=== PATIENT | male | born 1970 | race Caucasian/White ===

== ENCOUNTER 2023-10-05 08:43 | Inpatient (IN) | payer MEDICAID ==
[~2023-10-05] VITALS: Ht 185.4 cm; Wt 113.4 kg
[~2023-10-05 08:43] MED LIST: GABA-1181 PO; MELA5TAB40 PO; MIRT-89 PO; NALT50TA PO; OLAN5TAB94 PO; OMEG-135 PO
[2023-10-05 09:24] LABS: BASOPHILS % (AUTO) 0.7 % (0.0-2.0); EOSINOPHILS % (AUTO) 1.8 % (1.0-6.0); HEMATOCRIT 43.4 % (41-53); LYMPHOCYTES # (AUTO) 1.5 K/uL (1.0-4.8); LYMPHOCYTES % (AUTO) 20.8 % (22.0-44.0); MEAN CORPUSCULAR HEMOGLOBIN 33.8 pg (26.0-34.0); MEAN CORPUSCULAR HGB CONC 34.5 G/dL (31.0-37.0); MEAN CORPUSCULAR VOLUME 98 fL (80-100); MONOCYTES # (AUTO) 0.7 K/uL (0.1-1.0); MONOCYTES % (AUTO) 8.9 % (2.0-9.0); NEUTROPHILS % (AUTO) 67.8 % (40.0-70.0); PLATELET COUNT (AUTO) 199 K/uL (150-450); RED BLOOD CELL COUNT(AUTO) 4.44 MIL/uL (4.50-5.90); WHITE BLOOD COUNT (AUTO) 7.4 K/uL (4.5-11.0)
[2023-10-05] MEDS ORDERED: ALBUTEROL SULFATE HFA 90 MCG/PUFF 8 GM INHALER IH PRN (09:30)
[2023-10-05 09:34] LABS: ANION GAP 6 mmol/L (8-16); CALCIUM, TOTAL 9.4 mg/dL (8.8-10.5); CARBON DIOXIDE 29 mmol/L (22-29); CHLORIDE 102 mmol/L (98-107); CREATININE 1.13 mg/dL (0.60-1.30); GLOMERULAR FILTR. RATE CALC > 60 mL/min (>60); GLUCOSE,RANDOM 93 mg/dL (70-110); SODIUM SERUM 137 mmol/L (136-145); UREA NITROGEN, BLOOD 29 mg/dL (7-18)
[2023-10-05 09:34] LABS: COVID AG,FIA SOURCE NASAL SWAB
[2023-10-05 09:39] LABS: ALANINE AMINOTRANSFERASE 45 U/L (12-78); ALBUMIN 3.8 g/dL (3.4-5.0); ALKALINE PHOSPHATASE 84 U/L (46-116); ASPARTATE AMINOTRANSFERASE 29 U/L (15-37); BILIRUBIN,TOTAL 0.7 mg/dL (0.1-1.0); TOTAL PROTEIN, SERUM 7.5 g/dL (6.4-8.2)
[2023-10-05 09:40] LABS: ALCOHOL, BLOOD (SERUM) < 3 mg/dL (0-10)
[2023-10-05 09:41] VITALS: PULSE 104; RESP 20; O2SAT 91
[2023-10-05 10:01] LABS: SARS-COV2 (COVID) ANTIGEN,FIA Negative (Negative)
[2023-10-05 10:16] LABS: PH,URINE DRUG SCREEN 5.5 (5.0-8.0)
[2023-10-05 10:23] LABS: ALCOHOL, URINE DRUG SCREEN POSITIVE (NEGATIVE); AMPHET/METH SCREEN,URINE POSITIVE (NEGATIVE); BARBITURATE SCREEN, URINE NEGATIVE (NEGATIVE); BENZODIAZEPINES SCREEN,URINE POSITIVE (NEGATIVE); CANNABINOID SCREEN,URINE NEGATIVE (NEGATIVE); COCAINE SCREEN,URINE NEGATIVE (NEGATIVE); METHADONE SCREEN, URINE NEGATIVE (NEGATIVE); OPIATE SCREEN,URINE NEGATIVE (NEGATIVE); PHENCYCLIDINE SCREEN,URINE NEGATIVE (NEGATIVE)
[2023-10-05] MEDS ORDERED: LORazepam 2 MG TABLET PO PRN ×2 (10:45→14:30)
[2023-10-05] MEDS ORDERED: ZOLPIDEM TARTRATE 10 MG TABLET PO PRN (10:45)
[2023-10-05] MEDS ORDERED: ALBU18HF12 IH (10:50)
[2023-10-05 10:56] LABS: APPEARANCE,URINE CLEAR (CLEAR); BILIRUBIN,URINE NEGATIVE (NEGATIVE); COLOR,URINE YELLOW (YELLOW); GLUCOSE, URINE (UA) NEGATIVE (NEGATIVE); KETONES,URINE TRACE mg/dL (NEGATIVE); LEUKOCYTE ESTERASE ,URINE NEGATIVE (NEGATIVE); NITRATE,URINE NEGATIVE (NEGATIVE); OCCULT BLOOD,URINE NEGATIVE (NEGATIVE); PH,URINE 5.5 (5.0-8.0); PROTEIN,URINE TRACE mg/dL (NEGATIVE); SPECIFIC GRAVITIY, URINE 1.029 (1.003-1.030); UROBILINOGEN,URINE <=1.0 mg/dL (<=1.0)
[2023-10-05] MEDS: OLANZapine 5 MG RAPDIS TABLET PO PRN (11:20)
[2023-10-05] MEDS ORDERED: ACETAMINOPHEN 325 MG TABLET PO PRN (14:30)
[2023-10-05] MEDS ORDERED: PROMETHAZINE HCL 25 MG TABLET PO PRN (14:30)
[2023-10-05] MEDS ORDERED: MAGNESIUM HYDROXIDE SUSPENSION 30 ML UDCUP PO PRN (14:30)
[2023-10-05] MEDS ORDERED: CYANOCOBALAMIN 1,000 MCG/ML VIAL IM ONE (14:30)
[2023-10-05] MEDS ORDERED: HydrOXYzine PAMOATE 50 MG CAPSULE PO PRN (14:30)
[2023-10-05] MEDS ORDERED: LOPERAMIDE HCL 2 MG CAPSULE PO PRN ×2 (14:30)
[2023-10-05] MEDS ORDERED: MAG HYDROX/ALUMINUM HYD/SIMETH ES 30 ML SUSPENSION UDCUP PO PRN (14:30)
[2023-10-05] MEDS ORDERED: TUBERCULIN, PURIFIED PROTEIN DERIVATIVE 5 TU/0.1 ML SYRINGE ID ONE (14:30)
[2023-10-05] MEDS ORDERED: GuaiFENesin/D-METHORPHAN [SUGAR-FREE] 200-20MG/10 ML SYRUP UDCUP PO PRN (14:30)
[2023-10-05 17:35] VITALS: BP 141/84; PULSE 86; RESP 17; TEMP 98; O2SAT 98
[2023-10-05] MEDS: THIAMINE 100 MG TABLET PO SCH (17:45)
[2023-10-05] MEDS: GABAPENTIN 300 MG CAPSULE PO SCH ×2 (17:45→20:44)
[2023-10-05 18:30] VITALS: BP 156/78; PULSE 71; RESP 19; TEMP 97.6; O2SAT 97
[2023-10-05] MEDS ORDERED: PNEUMOCOCCAL VACCINE POLYVALENT 0.5 ML SYRINGE [PPSV23] IM. ONE (19:00)
[2023-10-05] MEDS ORDERED: INFLUENZA VIRUS VACCINE QVS 2023-24 (6MO+)/PF 60 MCG/0.5 ML SYRINGE IM. ONE (19:00)
[2023-10-05 19:30] VITALS: BP 155/83; PULSE 78; RESP 19; TEMP 97.7; O2SAT 97
[2023-10-05 20:04] VITALS: RESP 20; TEMP 97.8
[2023-10-05] MEDS: MIRTAZAPINE 15 MG TABLET PO SCH (20:08)
[2023-10-05] MEDS: MELATONIN 5 MG TABLET PO SCH (20:08)
[2023-10-05 20:30] VITALS: BP 141/82; PULSE 75; RESP 18; TEMP 97.5; O2SAT 96
[2023-10-05] MEDS ORDERED: OLANZapine 5 MG RAPDIS TABLET PO SCH (21:00)
[2023-10-06] VITALS (8 sets, daily range): BP systolic 111–149; BP diastolic 59–91; PULSE 61–83; RESP 16–19; TEMP 97.6–98; O2SAT 95–97
[2023-10-06] MEDS ORDERED: LORazepam 2 MG TABLET PO PRN (07:00)
[2023-10-06 08:41] LABS: HEMOGLOBIN A1C 5.1 % (3.8-5.6)
[2023-10-06] MEDS: GABAPENTIN 300 MG CAPSULE PO SCH ×4 (08:42→20:11)
[2023-10-06] MEDS: THIAMINE 100 MG TABLET PO SCH ×2 (08:42→17:05)
[2023-10-06] MEDS: NALTREXONE HCL 50 MG TABLET PO SCH (08:43)
[2023-10-06] MEDS: LORazepam 2 MG TABLET PO SCH ×4 (08:43→20:14)
[2023-10-06] MEDS: FOLIC ACID 1 MG TABLET PO SCH (08:43)
[2023-10-06] MEDS: OMEGA-3/DHA/EPA/FISH OIL 1,000 MG CAPSULE PO SCH (08:44)
[2023-10-06 08:46] LABS: CHOL/HDL RATIO 2.7 (4.2-7.3); FREE T4 (FREE THYROXINE) 1.17 ng/dL (0.76-1.46); THYROID STIMULATING HORMONE 1.86 uIU/mL (0.36-3.74)
[2023-10-06] MEDS ORDERED: MULTIVITAMINS WITH MINERALS, THERAPEUTIC TABLET PO SCH (09:00)
[2023-10-06] MEDS ORDERED: LORazepam 2 MG TABLET PO ONE (16:15)
[2023-10-06] MEDS: MELATONIN 5 MG TABLET PO SCH (20:11)
[2023-10-06] MEDS: MIRTAZAPINE 15 MG TABLET PO SCH (20:11)
[2023-10-07] VITALS (9 sets, daily range): BP systolic 110–173; BP diastolic 72–100; PULSE 61–96; RESP 17–18; TEMP 96.3–98; O2SAT 94–97
[2023-10-07 02:06] LABS: HEPATITIS C AB (EIA) Non Reactive (Non Reactive)
[2023-10-07] MEDS: THIAMINE 100 MG TABLET PO SCH ×2 (08:32→16:05)
[2023-10-07] MEDS: MULTIVITAMINS WITH IRON TABLET PO SCH (08:32)
[2023-10-07] MEDS: OMEGA-3/DHA/EPA/FISH OIL 1,000 MG CAPSULE PO SCH (08:33)
[2023-10-07] MEDS: FOLIC ACID 1 MG TABLET PO SCH (08:33)
[2023-10-07] MEDS: GABAPENTIN 300 MG CAPSULE PO SCH ×4 (08:33→20:43)
[2023-10-07] MEDS: NALTREXONE HCL 50 MG TABLET PO SCH (08:33)
[2023-10-07] MEDS: LORazepam 2 MG TABLET PO SCH ×4 (12:10→20:43)
[2023-10-07] MEDS: MIRTAZAPINE 15 MG TABLET PO SCH (20:43)
[2023-10-07] MEDS: MELATONIN 5 MG TABLET PO SCH (20:43)
[2023-10-08] MEDS ORDERED: LORazepam 1 MG TABLET PO PRN (07:00)
[2023-10-08 07:24] VITALS: BP 135/91; PULSE 88; RESP 18; O2SAT 98
[2023-10-08 09:02] VITALS: BP 150/99; PULSE 92; RESP 17; TEMP 97.7; O2SAT 95
[2023-10-08] MEDS: OMEGA-3/DHA/EPA/FISH OIL 1,000 MG CAPSULE PO SCH (09:05)
[2023-10-08] MEDS: LORazepam 1 MG TABLET PO SCH ×4 (09:05→21:26)
[2023-10-08] MEDS: THIAMINE 100 MG TABLET PO SCH ×2 (09:06→16:29)
[2023-10-08] MEDS: NALTREXONE HCL 50 MG TABLET PO SCH (09:06)
[2023-10-08] MEDS: MULTIVITAMINS WITH IRON TABLET PO SCH (09:06)
[2023-10-08] MEDS: FOLIC ACID 1 MG TABLET PO SCH (09:06)
[2023-10-08] MEDS: GABAPENTIN 300 MG CAPSULE PO SCH ×2 (09:06→12:55)
[2023-10-08] MEDS: METOPROLOL TARTRATE 25 MG TABLET PO SCH ×2 (10:21→16:26)
[2023-10-08 11:03] VITALS: BP 150/99; PULSE 95; RESP 17; TEMP 97.7; O2SAT 92
[2023-10-08] MEDS: ALBUTEROL SULFATE HFA 90 MCG/PUFF 8 GM INHALER IH PRN (13:49)
[2023-10-08 16:11] VITALS: BP 139/88; PULSE 88; RESP 17; TEMP 97.9; O2SAT 97
[2023-10-08] MEDS: GABAPENTIN 400 MG CAPSULE PO SCH ×2 (16:30→21:26)
[2023-10-08 20:10] VITALS: BP 153/84; PULSE 60; RESP 20; TEMP 98.2; O2SAT 92
[2023-10-08] MEDS ORDERED: MIRTAZAPINE 15 MG TABLET PO SCH (21:00)
[2023-10-08 21:23] VITALS: BP 150/84; PULSE 60; RESP 20; TEMP 98.2; O2SAT 92
[2023-10-08] MEDS: MELATONIN 5 MG TABLET PO SCH (21:26)
[2023-10-08] MEDS: MIRTAZAPINE 15 MG TABLET PO SCH (21:30)
[2023-10-09] MEDS: OMEGA-3/DHA/EPA/FISH OIL 1,000 MG CAPSULE PO SCH (07:58)
[2023-10-09] MEDS: THIAMINE 100 MG TABLET PO SCH ×2 (07:59→16:23)
[2023-10-09] MEDS: MULTIVITAMINS WITH IRON TABLET PO SCH (07:59)
[2023-10-09] MEDS: FOLIC ACID 1 MG TABLET PO SCH (07:59)
[2023-10-09] MEDS: METOPROLOL TARTRATE 25 MG TABLET PO SCH ×2 (07:59→16:23)
[2023-10-09] MEDS: GABAPENTIN 400 MG CAPSULE PO SCH ×4 (07:59→20:44)
[2023-10-09] MEDS: NALTREXONE HCL 50 MG TABLET PO SCH (08:00)
[2023-10-09 08:05] VITALS: BP 107/69; PULSE 82; RESP 19; TEMP 97.9; O2SAT 95
[2023-10-09 08:30] VITALS: BP 107/69; PULSE 82; RESP 19; TEMP 97.9; O2SAT 95
[2023-10-09] MEDS: ALBUTEROL SULFATE HFA 90 MCG/PUFF 8 GM INHALER IH PRN ×2 (14:28→23:45)
[2023-10-09] MEDS: LORazepam 1 MG TABLET PO PRN (17:18)
[2023-10-09] MEDS: MELATONIN 5 MG TABLET PO SCH (20:43)
[2023-10-09] MEDS: MIRTAZAPINE 15 MG TABLET PO SCH (20:44)
[2023-10-09 21:07] VITALS: BP 141/86; PULSE 60; RESP 18; TEMP 98.2; O2SAT 93
[2023-10-10] MEDS: LORazepam 1 MG TABLET PO PRN (03:03)
[2023-10-10] MEDS: ALBUTEROL SULFATE HFA 90 MCG/PUFF 8 GM INHALER IH PRN ×4 (06:09→22:04)
[2023-10-10 08:03] VITALS: BP 157/101; PULSE 88; RESP 18; TEMP 98; O2SAT 94
[2023-10-10] MEDS: OMEGA-3/DHA/EPA/FISH OIL 1,000 MG CAPSULE PO SCH (08:06)
[2023-10-10] MEDS: THIAMINE 100 MG TABLET PO SCH ×2 (08:06→16:37)
[2023-10-10] MEDS: MULTIVITAMINS WITH IRON TABLET PO SCH (08:06)
[2023-10-10] MEDS: NALTREXONE HCL 50 MG TABLET PO SCH (08:06)
[2023-10-10] MEDS: FOLIC ACID 1 MG TABLET PO SCH (08:06)
[2023-10-10] MEDS: GABAPENTIN 400 MG CAPSULE PO SCH ×4 (08:06→20:03)
[2023-10-10] MEDS: METOPROLOL TARTRATE 25 MG TABLET PO SCH ×2 (08:06→16:37)
[2023-10-10 10:30] VITALS: BP 146/88; PULSE 82; RESP 16; O2SAT 98
[2023-10-10 16:30] VITALS: BP 149/87; PULSE 70; RESP 17; O2SAT 96
[2023-10-10] MEDS ORDERED: ALBUTEROL SULFATE HFA 90 MCG/PUFF 8 GM INHALER IH ONE (17:45)
[2023-10-10] MEDS: MIRTAZAPINE 15 MG TABLET PO SCH (20:03)
[2023-10-10] MEDS: MELATONIN 5 MG TABLET PO SCH (20:03)
[2023-10-10 20:18] VITALS: BP 149/87; PULSE 70; RESP 18; TEMP 97.9; O2SAT 95
[2023-10-10] MEDS: OLANZapine 5 MG RAPDIS TABLET PO PRN (22:04)
[2023-10-11] MEDS: ALBUTEROL SULFATE HFA 90 MCG/PUFF 8 GM INHALER IH PRN ×2 (02:53→08:30)
[2023-10-11] MEDS: OLANZapine 5 MG RAPDIS TABLET PO PRN ×3 (05:46→17:16)
[2023-10-11 08:13] VITALS: BP 131/84; PULSE 82; RESP 17; TEMP 98.2; O2SAT 95
[2023-10-11] MEDS: NALTREXONE HCL 50 MG TABLET PO SCH (08:26)
[2023-10-11] MEDS: GABAPENTIN 400 MG CAPSULE PO SCH ×4 (08:26→20:19)
[2023-10-11] MEDS: THIAMINE 100 MG TABLET PO SCH ×2 (08:26→16:55)
[2023-10-11] MEDS: OMEGA-3/DHA/EPA/FISH OIL 1,000 MG CAPSULE PO SCH (08:26)
[2023-10-11] MEDS: METOPROLOL TARTRATE 25 MG TABLET PO SCH ×2 (08:27→16:56)
[2023-10-11] MEDS: MULTIVITAMINS WITH IRON TABLET PO SCH (08:27)
[2023-10-11] MEDS: FLUTICASONE/VILANTEROL 200-25 MCG/INH INHALER [14] IH SCH (08:27)
[2023-10-11] MEDS: FOLIC ACID 1 MG TABLET PO SCH (08:27)
[2023-10-11 16:55] VITALS: BP 129/79; PULSE 64; RESP 17
[2023-10-11 20:06] VITALS: BP 129/79; PULSE 64; RESP 17; TEMP 97.4; O2SAT 96
[2023-10-11] MEDS: MIRTAZAPINE 15 MG TABLET PO SCH (20:19)
[2023-10-11] MEDS: MELATONIN 5 MG TABLET PO SCH (20:19)
[2023-10-12] MEDS: OLANZapine 5 MG RAPDIS TABLET PO PRN ×2 (04:39→08:42)
[2023-10-12] MEDS: FLUTICASONE/VILANTEROL 200-25 MCG/INH INHALER [14] IH SCH (08:31)
[2023-10-12] MEDS: MULTIVITAMINS WITH IRON TABLET PO SCH (08:32)
[2023-10-12] MEDS: OMEGA-3/DHA/EPA/FISH OIL 1,000 MG CAPSULE PO SCH (08:32)
[2023-10-12] MEDS: GABAPENTIN 400 MG CAPSULE PO SCH ×3 (08:32→16:52)
[2023-10-12] MEDS: NALTREXONE HCL 50 MG TABLET PO SCH (08:32)
[2023-10-12] MEDS: THIAMINE 100 MG TABLET PO SCH ×2 (08:33→16:50)
[2023-10-12] MEDS: FOLIC ACID 1 MG TABLET PO SCH (08:33)
[2023-10-12] MEDS: METOPROLOL TARTRATE 25 MG TABLET PO SCH ×2 (08:33→16:50)
[2023-10-12 08:48] VITALS: BP 140/98; PULSE 79; RESP 18; TEMP 97.3; O2SAT 97
[2023-10-12] MEDS ORDERED: NALT50TA PO (16:06)
[2023-10-12] MEDS ORDERED: MELA5TAB40 PO (16:06)
[2023-10-12] MEDS ORDERED: OMEG-135 PO (16:06)
[2023-10-12] MEDS ORDERED: GABA-1201 PO ×2 (16:06→16:19)
[2023-10-12] MEDS ORDERED: MIRT-89 PO ×2 (16:06→16:23)
[2023-10-12] MEDS ORDERED: METO25 PO (16:36)
== END 2023-10-12 18:09 | disposition home or self-care (01) | DRG 751 ==
LOC: EMS 08:43 → B2S 13:02
PROVIDERS: ADMIT Psychiatry & Neurology Psychiatry; ATTEND Psychiatry & Neurology Psychiatry
DX: F33.2 Major depressive disorder, recurrent severe without psychotic features (principal); R45.851 Suicidal ideations; F17.200 Nicotine dependence, unspecified, uncomplicated; F41.9 Anxiety disorder, unspecified; I10 Essential (primary) hypertension; K21.9 Gastro-esophageal reflux disease without esophagitis; F10.20 Alcohol dependence, uncomplicated; J44.9 Chronic obstructive pulmonary disease, unspecified; Z20.822 Contact with and (suspected) exposure to COVID-19; Z55.9 Problems related to education and literacy, unspecified; Z59.9 Problem related to housing and economic circumstances, unspecified; Z65.3 Problems related to other legal circumstances; Z63.9 Problem related to primary support group, unspecified; Z79.899 Other long term (current) drug therapy; Z91.51 Personal history of suicidal behavior
CPT/HCPCS: 80053; 80061; 80307; 81003; 83036; 84439; 84443; 85025; 86592; 86803; 87340; 94640; G0480; J3420; J3535; Q9967